=== PATIENT | female | born 1975 | race Hispanic/Latino ===

== ENCOUNTER 2021-01-09 22:37 | Observation (INO) | payer MEDICAID, OTHER, SELFPAY ==
[~2021-01-09] VITALS: Ht 154.9 cm; Wt 93.0 kg
[2021-01-09 23:04] VITALS: BP 159/93
--- NOTE | 2021-01-09 23:24 | ER.PDOC ---
General Chief Complaint: Abdomen Pain Stated Complaint: SIDE PAIN Time seen by MD: 23:24 Source: patient Exam Limitations: no limitations History of Present Illness Initial Comments Left abdominal pain for 3 weeks. No nausea, vomiting or diarrhea. No fever or chills. Severity/Quality: moderate, sharpness Radiation: flank (left) Associated Symptoms: denies symptoms Exacerbated by: nothing Relieved By: nothing Allergies: Coded Allergies: No Known Allergies (Unverified , 01/09/21) Vital Signs First Vital Signs Date Time Temp Pulse Resp B/P (MAP) Pulse Ox O2 Delivery O2 Flow Rate FiO2 01/09/21 23:04 98.0 97 16 01/09/21 23:04 159/93 (115) 97 Room Air Last Vital Signs Date Time Temp Pulse Resp B/P (MAP) Pulse Ox O2 Delivery O2 Flow Rate FiO2 01/09/21 23:04 98.0 97 16 97 01/09/21 23:04 159/93 (115) Room Air Past Medical History Medical History: hypertension Surgical History: no surgical history Family History Significant Family History: no pertinent family hx Social History Smoking: non-smoker Alcohol Use: occassionally Drug Use: none Constitutional: no symptoms reported EENTM: no symptoms reported Respiratory: no symptoms reported Cardiovascular: no symptoms reported Gastrointestinal: see HPI All Other Systems: Reviewed and Negative Physical Exam General Appearance: No Apparent Distress, WD/WN Neck: Non-Tender, Full Range of Motion, Supple, Normal Inspection Respiratory: chest non-tender, lungs clear, normal breath sounds, no respiratory distress, no accessory muscle use Cardiovascular: Normal Peripheral Pulses, Regular Rate, Rhythm, No Edema, No Gallop, No JVD, No Murmur Gastrointestinal: Normal Bowel Sounds, No Organomegaly, No Pulsatile Mass, Tenderness (Left abdomen) Back: Normal Inspection, No CVA Tenderness, No Vertebral Tenderness Extremities: Normal Range of Motion, Non-Tender, Normal Inspection, No Pedal Edema, No Calf Tenderness, Normal Capillary Refill, Pelvis Stable Neurologic/Psychiatric: 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 (01/09/21 23:14) Urinalysis (01/09/21 23:14) Hcg Urine (01/09/21 23:14) Ketorolac Tromethamine (Toradol) (01/09/21 23:33) Ct Abd/Pel With Iv Contrast (01/09/21 23:42) Vital Signs Date Time Temp Pulse Resp B/P (MAP) Pulse Ox O2 Delivery O2 Flow Rate FiO2 01/09/21 23:04 98.0 97 16 97 01/09/21 23:04 98.0 97 16 159/93 (115) 97 Room Air 01/09/21 23:04 98.0 [address] abdomen and pelvis shows left 11 mm obstructive ureteral calculus. ER DEPART Departure Time of Disposition: 01:00 Disposition: 09 ADMITTED INPATIENT Impression: Primary Impression: Ureteral stone with hydronephrosis Additional Impression: UTI (urinary tract infection) Condition: Stable Referrals: PCP,UNKNOWN (PCP) PRIMARY CARE PROVIDER Comments Admitted to Dr. Hannah. Spoke with Dr. Simental who will be consulting. Duration or Time Spent with Pa: 60 min Problem Qualifiers Additional Impression: UTI (urinary tract infection) Urinary tract infection type: site unspecified Hematuria presence: with hematuria Qualified Codes: N39.0 - Urinary tract infection, site not specified; R31.9 - Hematuria, unspecified TELLO MILTON MD Jan 09, 2021 23:24
[2021-01-09] MEDS ORDERED: TORADOL IV STA (23:33)
[2021-01-10] VITALS (8 sets, daily range): BP systolic 116–159; BP diastolic 64–98
[2021-01-10] MEDS ORDERED: ZOFRAN IV PRN (01:30)
[2021-01-10] MEDS ORDERED: DEMEROL IV PRN (01:30)
[2021-01-10] MEDS ORDERED: ROCEPHIN ONE ×2 (01:33→12:06)
[2021-01-10] MEDS ORDERED: HNS 1000ML/KCL 20MEQ 1,000 ML ONE (02:10)
[2021-01-10] MEDS ORDERED: DEMEROL ONE (02:31)
[2021-01-10 06:34] LABS: UA COLOR YELLOW
[2021-01-10 06:35] LABS: BILIRUBIN,URINE NEGATIVE (NEGATIVE)
[2021-01-10 06:36] LABS: UROBILINOGEN,URINE 0.2 E.U./dL (0.2)
[2021-01-10 06:38] LABS: BASOPHIL % 0.5 % (0.0-0.2); EOSINOPHIL % 1.4 % (0.0-5.0); LYMPHOCYTES # 2.72 10^3/uL1 (1.0-4.8); LYMPHOCYTES % 42.8 % (24.0-44.0); MEAN CORP HGB 31.7 pg (26-34); MONOCYTES % 5.8 % (5.0-12.0); NEUTROPHIL # 3.1 10^3/uL (1.8-7.7); NEUTROPHILS % 49.2 % (41.0-85.0); RED CELL DISTRIBUTION WIDTH 13.7 % (11.5-14.5)
[2021-01-10 06:39] LABS: MONOCYTES # 0.4 10^3/uL (0.3-0.8)
[2021-01-10 06:41] LABS: CALCIUM 8.7 mg/dL (8.4-10.5)
--- NOTE | 2021-01-10 08:10 | PCM.HP ---
Review of Systems Allergies: Coded Allergies: No Known Allergies (Unverified , 01/09/21) VTE VTE Risk Score VTE Risk: Score 0-1 = Low Risk (Aggressive mobilization; early ambulation; no VTE prophylaxis required) Score 2: Moderate Risk (Intermittent/Pneumatic Compression Device OR Lovenox/Heparin/Coumadin) Score 3-4: High Risk (Intermittent/Pneumatic Compression Device AND Lovenox/Heparin/Coumadin) Score > or =5: Highest Risk (Intermittent/Pneumatic Compression Device AND Lovenox/Heparin/Coumadin) Exam Vital Signs Vital Signs Date Time Temp Pulse Resp B/P (MAP) Pulse Ox O2 Delivery O2 Flow Rate FiO2 01/10/21 07:52 97.7 62 18 144/76 (98) 98 01/09/21 23:04 Room Air ERICKA ZHANG MD Jan 10, 2021 08:10
[2021-01-10] MEDS ORDERED: ROCEPHIN 1,000 MG in NS 100ML 100 ML IV SCH (08:30)
[2021-01-10] MEDS ORDERED: LACTATED RINGERS 1,000 ML ONE ×2 (08:53→12:55)
[2021-01-10] MEDS ORDERED: SUBLIMAZE ONE (11:38)
[2021-01-10] MEDS ORDERED: DIPRIVAN IV ONE (11:38)
[2021-01-10] MEDS ORDERED: VERSED ONE ×2 (11:39→11:41)
[2021-01-10] MEDS ORDERED: TORADOL ONE (11:41)
[2021-01-10] MEDS ORDERED: DECADRON ONE (11:42)
[2021-01-10] MEDS ORDERED: ZOFRAN ONE (11:42)
[2021-01-10] MEDS ORDERED: NS 3000ML IRR IR ONE (12:06)
[2021-01-10] MEDS ORDERED: SODIUM CHLORIDE IRR BOTTLE IR ONE (12:06)
[2021-01-10] MEDS ORDERED: NS 100ML 100 ML IV ONE (12:09)
--- NOTE | 2021-01-10 12:24 | NUR ---
[facility] UNABLE TO TAKE TRANSFER. NO BEDS AVAILABLE.
--- NOTE | 2021-01-10 12:25 | NUR ---
[facility] UNABLE TO TAKE TRANSFER. ON DIVERSION AND NOT ACCEPTING TRANSFERS
--- NOTE | 2021-01-10 12:26 | NUR ---
[facility] UNABLE TO TAKE TRANSFER. ON DIVERSION
--- NOTE | 2021-01-10 12:27 | NUR ---
[facility] UNABLE TO TAKE TRANSFER. ON DIVERSION.
--- NOTE | 2021-01-10 12:28 | NUR ---
[facility] UNABLE TO TAKE TRANSFER. ON DIVERSION.
--- NOTE | 2021-01-10 12:29 | PCM.HP ---
History of Present Illness Reason for Visit: Abdominal pain or nausea History of Present Illness 45-year-old female with history of hypertension noncompliant treatment presented to the emergency room with abdominal pain and nausea for the last 2 days. Work- up in the emergency room including CT abdomen pelvis patient was found to have 11 mm ureter stone. Patient being admitted hospital for further management. Urologist consulted. Past Medical History Cardiac: HTN Review of Systems Constitutional: Chills Eyes: No: Pain, Vision change ENT: No: Ear pain, Ear discharge Respiratory: No: Dry, Shortness of breath Cardiovascular: No: Chest Pain, Palpitations Gastrointestinal: Nausea, Vomiting, Abdominal Pain Genitourinary: Frequency; No Incontinence; Other Musculoskeletal: No: neck pain, shoulder pain Skin: No: Lesions, Jaundice Neurological: No: Weakness, Numbness Allergies: Coded Allergies: No Known Allergies (Unverified , 01/09/21) Exam Vital Signs Vital Signs Date Time Temp Pulse Resp B/P (MAP) Pulse Ox O2 Delivery O2 Flow Rate FiO2 01/10/21 11:54 98.1 64 18 148/98 (115) 98 01/09/21 23:04 Room Air General Appearance: Alert, Oriented X3 HEENT: Atraumatic, PERRLA Respiratory: Clear to auscultation, Normal air movement Cardiovascular: Regular rate, Normal S1, Normal S2 Abdominal: Normal bowel sounds, Other (Left abdominal tenderness,) Extremities: No clubbing, No cyanosis Skin: No rash, No breakdown Neuro: Normal gait, Normal speech Psych/Mental Status: Mental status NL, Mood NL Assessment/Plan Assessment/Plan Assessment/Plan 45-year-old female with history of hypertension noncompliant treatment presented to the emergency room with abdominal pain and nausea for the last 2 days. Work- up in the emergency room including CT abdomen pelvis patient was found to have 11 mm ureter stone. Patient being admitted hospital for further management. Urologist consulted. Problems: (1) Ureteral stone with hydronephrosis Status: Acute ICD Code: N13.2 - Hydronephrosis with renal and ureteral calculous obstruction SNOMED: 995576318 (2) UTI (urinary tract infection) Status: Acute ICD Code: N39.0 - Urinary tract infection, site not specified SNOMED: 52915514 (3) Hypertension ICD Code: I10 - Essential (primary) hypertension SNOMED: 59885349 Plan Plan Admit Keep n.p.o. IV fluids Pain management IV antibiotic Urologist consulted for further management We will monitor control blood pressure Prophylaxis early ambulation Expect length of stay 1 midnight if patient stable and cleared by Urologist Problem Qualifiers (1) UTI (urinary tract infection): Urinary tract infection type: site unspecified Hematuria presence: with hematuria Qualified Codes: N39.0 - Urinary tract infection, site not s pecified; R31.9 - Hematuria, unspecified ERICKA ZHANG MD Jan 10, 2021 12:29
[2021-01-10] MEDS ORDERED: TRANDATE IV PRN (12:30)
--- NOTE | 2021-01-10 12:37 | NUR ---
[facility] WILL PLACE PT ON WAIT LIST. PHYSICIAN CONTACT PROVIDED
[2021-01-10] MEDS: ROCEPHIN 1,000 MG in NS 100ML 100 ML IV SCH ×2 (12:50→14:56)
[2021-01-10] MEDS ORDERED: LACTATED RINGERS 1,000 ML IV SCH (13:00)
--- NOTE | 2021-01-10 13:11 | OPH ---
DATE OF SURGERY: 01/10/2021 DICTATOR NAME: Taye Simental MD DATE OF PROCEDURE: 01/10/2021 DESCRIPTION OF PROCEDURE: The patient was brought to the cystoscopy room and put in supine position on the cystoscopy table. After the patient was given a satisfactory and adequate LMA general anesthesia, the patient was placed in the lithotomy position. The genitalia was then prepped and draped aseptically in the usual manner. First, a 23-Israeli cystoscope was inserted per urethra up to the bladder. With the use of the right angle lens, the bladder was visualized. There is no tumor, no calculi, no ulcerations seen. Both ureteral orifices were normal. Initial left retrograde was done by inserting a 7-Israeli ureteral catheter in the left ureteral orifice and injected with Omnipaque dye and it showed a large calculus in the left lower ureter at the level of S1 with hydroureteronephrosis. A Glidewire was then attempted to be inserted into the left ureteral orifice, but it was completely obstructed and the guidewire would not go through, so the cystoscope was removed and then a 7-Israeli semirigid ureteroscope was inserted into the bladder into the left ureteral orifice and again a guidewire was inserted and attempted to pass the stone, but it was still completely blocked. I was unable to put a stent because of the complete blockage of the large calculus in the left lower ureter. At this time, I stopped the procedure. The ureteroscope was removed and a cystoscope was reinserted into the bladder and the bladder was emptied with fluid. After this, the cystoscope was removed. Procedure was terminated. The patient was transferred to the recovery room in stable condition. PLAN: Now is to refer the patient for a left percutaneous nephrostomy. Taye Simental MD DR: DEONDRE/CARIDAD/STEFANY TID: [id number] RECEIPT: [id number] DANYA
[2021-01-10] MEDS: HNS 1000ML/KCL 20MEQ 1,000 ML IV SCH ×3 (14:55→21:30)
[2021-01-10] MEDS: NS 1000ML 1,000 ML IV SCH ×2 (14:56→16:30)
--- NOTE | 2021-01-10 14:58 | NUR ---
[facility] PT PLACED ON WAIT LIST AT [facility] IN [place], [place]
--- NOTE | 2021-01-10 15:23 | NUR ---
[facility] ON DIVERSION. PT PLACED ON WAIT LIST.
--- NOTE | 2021-01-10 15:27 | NUR ---
[facility] IN [facility] IN [place], [place] IN DIVERSION.
[2021-01-10] MEDS: MORPHINE SULFATE IV PRN ×3 (15:52→23:55)
--- NOTE | 2021-01-10 16:08 | DIREP ---
PROCEDURE:XRAY UROGRAPHY RETROGRADE COMPARISON:[facility], CT, CT ABD/PELVIS W/ CONTRAST, 01/10/2021, 00:22 AM. INDICATIONS:9 FILMS 54.41MGY 107.6 SECS FLURO 10 CC OMNI 240 TECHNIQUE:Multiple fluoroscopic images were obtained during retrograde urogram. Nine fluoroscopic images are provided. Total fluoroscopic time 107.6 seconds FINDINGS: Large filling defects seen within mid ureter secondary to calculus seen on recent CT. Partially opacified left ovary caliceal system appears distended consistent with hydronephrosis. Subsequent images demonstrate passes over wire into the distal ureter towards calculus, no images demonstrating wire passing calculus. Last 2 fluoroscopic images demonstrate residual contrast within the left upper urinary collecting system. CONCLUSION: 1. Mid left ureteral calculus, provided fluoroscopic images do not demonstrate retrieval of stone. 2. Dilated left urinary collecting system. Dictated by: Royer Rushing M.D. on 01/10/2021 at 04:03 PM
--- NOTE | 2021-01-10 20:47 | CNH ---
DATE OF CONSULTATION: 01/10/2021 DICTATOR NAME: Taye Simental MD HISTORY OF PRESENT ILLNESS: This is a 45-year-old old female who was admitted from the emergency room last night by the hospitalist because of left flank pain. A noncontrast CT scan revealed a large stone in the left lower ureter at the level of S1 around 11 mm with hydroureteronephrosis. The patient was seen this morning. All the lab reports were within normal range and he has a history of kidney stone before. I explained to the patient that because of that obstruction, we will try to attempt to do a cystoscopy, left retrograde with possible insertion of stent this morning. Taye Simental MD DR: BATSHEVA TID: [id number] RECEIPT: [id number]
[2021-01-10] MEDS ORDERED: MORPHINE SULFATE ONE (21:55)
[2021-01-11] MEDS: NS 1000ML 1,000 ML IV SCH ×2 (00:30→10:33)
[2021-01-11 01:35] VITALS: BP 165/100
[2021-01-11 06:06] VITALS: BP 162/112
[2021-01-11 07:55] VITALS: BP 149/96
[2021-01-11] MEDS ORDERED: NORVASC PO SCH (09:30)
[2021-01-11 09:54] LABS: CALCIUM 8.7 mg/dL (8.4-10.5); CARBON DIOXIDE 23.5 mmol/L (20.0-32)
[2021-01-11 11:35] VITALS: BP 151/83
--- NOTE | 2021-01-11 13:05 | PRM.PN ---
Subjective Subjective Date: Jan 11, 2021 Time: 09:00 Subjective Patient had cystoscopy yesterday, urologist was unable to place a stent because of the size and location of the stone. Request to transfer the patient for IR placement of nephrostomy tube. Called multiple hospitals, no beds available at this time, patient is on multiple waiting lists. Review of Systems Constitutional: Chills Eyes: No: Pain, Vision change ENT: No: Ear pain, Ear discharge Respiratory: No: Dry, Shortness of breath Cardiovascular: No: Chest Pain, Palpitations Gastrointestinal: Nausea, Vomiting, Abdominal Pain Genitourinary: Frequency; No Incontinence; Other Musculoskeletal: No: neck pain, shoulder pain Skin: No: Lesions, Jaundice Neurological: No: Weakness, Numbness Allergies: Coded Allergies: No Known Allergies (Unverified , 01/09/21) Objective Vitals and I/O Vital Sign - Last 24 Hours 01/10/21 01/10/21 01/10/21 01/10/21 15:09 16:25 20:29 21:40 Temp 97.5 97.7 Pulse 68 69 Resp 18 17 B/P (MAP) 159/97 (117) 142/93 (109) Pulse Ox 98 93 O2 Delivery Room Air Room Air 01/11/21 01/11/21 01/11/21 01/11/21 01:35 06:06 07:55 09:41 Temp 97.4 97.6 97.5 Pulse 66 93 83 83 Resp 17 18 20 B/P (MAP) 165/100 (121) 162/112 (129) 149/96 (113) 149/96 Pulse Ox 97 99 95 01/11/21 01/11/21 11:08 11:35 Temp 97.7 Pulse 62 Resp 19 B/P (MAP) 151/83 (105) Pulse Ox 95 O2 Delivery Room Air Intake and Output 01/11/21 07:00 Intake Total 100 ml Balance 100 ml General: Alert, Oriented X3 HEENT: Atraumatic, PERRLA Lungs: Clear to auscultation, Normal air movement Heart: Regular rate, Normal S1, Normal S2 Abdomen: Normal bowel sounds, Other (Left abdominal tenderness,) Extremities: No clubbing, No cyanosis Neuro: Normal gait, Normal speech Psych/Mental Status: Mental status NL, Mood NL All Results(Lab/Rad) Laboratory Tests Test 01/11/21 09:30 Sodium Level 139 mmol/L Potassium Level 3.8 mmol/L Chloride Level 105.0 mmol/L Carbon Dioxide Level 23.5 mmol/L Glucose Level 154 mg/dL Blood Urea Nitrogen 6 mg/dL Creatinine 0.74 mg/dL Calcium Level 8.7 mg/dL Anion Gap 14.3 Estimated GFR () 103.2 Est GFR (CKD-EPI)(Non-Afr German) 85.3 BUN/Creatinine Ratio 8.0 Current Medications Medications (Trade) Dose Ordered Sig/Joanna Route PRN Reason Start Time Stop Time Status Last Admin Dose Admin Ketorolac Tromethamine (Toradol) 30 mg STAT STAT IV 01/09/21 23:33 01/10/21 08:37 DC Ceftriaxone Sodium (Rocephin) 1,000 mg STK-MED ONCE .ROUTE 01/10/21 01:33 01/10/21 05:27 DC Morphine Sulfate (Morphine Sulfate) 2 mg Q4H PRN IV PAIN 7 - 10 01/10/21 08:30 02/09/21 08:29 01/10/21 23:55 Ceftriaxone Sodium 1000 mg/ Sodium Chloride 100 ml @ 100 mls/hr Q24HRS IV 01/10/21 08:30 01/10/21 09:25 DC Sodium Chloride 1,000 ml @ 125 mls/hr Q8H IV 01/10/21 08:30 02/09/21 08:29 01/11/21 10:33 Potassium Chloride/Sodium Chloride 1,000 ml @ ud STK-MED ONCE .ROUTE 01/10/21 02:10 01/10/21 08:31 DC Meperidine HCl (Demerol) 50 mg STK-MED ONCE .ROUTE 01/10/21 02:31 01/10/21 08:31 DC Ceftriaxone Sodium 1000 mg/ Sodium Chloride 100 ml @ 100 mls/hr Q24HRS IV 01/10/21 13:00 02/09/21 12:59 01/10/21 12:50 Propofol (Diprivan) 200 mg STK-MED ONCE IV 01/10/21 11:38 01/10/21 11:38 DC Fentanyl Citrate (Sublimaze) 50 mcg STK-MED ONCE .ROUTE 01/10/21 11:38 01/10/21 11:39 DC Ketorolac Tromethamine (Toradol) 30 mg STK-MED ONCE .ROUTE 01/10/21 11:41 01/10/21 11:42 DC Ondansetron HCl (Zofran) 4 mg STK-MED ONCE .ROUTE 01/10/21 11:42 01/10/21 11:42 DC Sodium Chloride (Sodium Chloride Irr Bottle) 1,000 ml STK-MED ONCE IR 01/10/21 12:06 01/10/21 12:06 DC Sodium Chloride (NS 3000ml Irr) 3,000 ml STK-MED ONCE IR 01/10/21 12:06 01/10/21 12:06 DC Ceftriaxone Sodium (Rocephin) 1,000 mg STK-MED ONCE .ROUTE 01/10/21 12:06 01/10/21 12:07 DC Sodium Chloride 100 ml @ ud STK-MED ONCE IV 01/10/21 12:09 01/10/21 12:09 DC Labetalol HCl (Trandate) 10 mg Q4H PRN IV HYPERTENSION 01/10/21 12:30 02/09/21 12:29 Potassium Chloride/Sodium Chloride 1,000 ml @ 100 mls/hr Q10H IV 01/10/21 01:30 01/11/21 07:39 DC 01/10/21 21:30 Meperidine HCl (Demerol) 50 mg Q4H PRN IV PAIN >4 01/10/21 01:30 02/09/21 01:29 Ondansetron HCl (Zofran) 4 mg Q4H PRN IV NAUSEA / VOMITING 01/10/21 01:30 02/09/21 01:29 01/10/21 15:52 Morphine Sulfate (Morphine Sulfate) 2 mg STK-MED ONCE .ROUTE 01/10/21 21:55 01/10/21 21:55 DC Amlodipine Besylate (Norvasc) 5 mg DAILY PO 01/11/21 09:30 02/10/21 09:29 01/11/21 09:41 Assessment/Plan Assessment/Plan Problems: (1) Ureteral stone with hydronephrosis Status: Acute ICD Code: N13.2 - Hydronephrosis with renal and ureteral calculous obstruction SNOMED: 930083835 (2) UTI (urinary tract infection) Status: Acute ICD Code: N39.0 - Urinary tract infection, site not specified SNOMED: 32572668 (3) Hypertension ICD Code: I10 - Essential (primary) hypertension SNOMED: 13353109 Plan Patient had cystoscopy yesterday, urologist was unable to place a stent because of the size and location of the stone. Request to transfer the patient for IR placement of nephrostomy tube. Called multiple hospitals, no beds available at this time, patient is on multiple waiting lists. Problem Qualifiers (1) UTI (urinary tract infection): Urinary tract infection type: site unspecified Hematuria presence: with hematuria Qualified Codes: N39.0 - Urinary tract infection, site not specified; R31.9 - Hematuria, unspecified ERICKA ZHANG MD Jan 11, 2021 13:05
[2021-01-11] MEDS ORDERED: AMLO5TAB4 PO (13:48)
[2021-01-11] MEDS ORDERED: CIPR250T28 PO (13:48)
--- NOTE | 2021-01-11 13:54 | PRM.DC ---
Discharge Summary Date of Discharge: Jan 11, 2021 Time of Request to Discharge: 09:00 Reason for Visit: Abdominal pain or nausea Hospital Course 45-year-old female with past medical history of hypertension but not on any treatment presented to emergency room with left lower quadrant abdominal pain associated with nausea. Work-up including CT abdomen pelvis patient was found to have a large 11 mm ureter stone.?? UTI. Urologist consulted.Urologist performed cystoscopy and attempted for retrieval of the stone was unsuccessful. Urologist advised nephrostomy tube . Attempts to transfer the patient to multiple facilities multiple hospitals was unsuccessful all hospitals are full and patient was not accepted at the time of this dictation. Urologist cleared the patient for discharge . Patient kidney function remained stable today. Creatinine remained stable. Today symptoms improved pain is tolerable no vomiting tolerating diet. Condition is stable. Patient will be discharged home. Appointment was given to the patient at [facility] for next Friday in the intervention radiology department for outpatient nephrostomy placement. Patient was instructed if her symptoms recurs, worsen or she develops fever chills nausea vomiting or reduced urine output to go directly to the emergency room. Patient understands instructions. Also patient was given prescription for antibiotic and amlodipine since her hypertension.Diet advance as tolerated. Scheduled Amlodipine Besylate (Norvasc), 5 MG PO DAILY Ciprofloxacin Hcl (Cipro), 250 MG PO BID Sepsis Evaluation @ Discharge 01/11/21 09:55 Plan Problems: (1) Ureteral stone with hydronephrosis Status: Acute ICD Code: N13.2 - Hydronephrosis with renal and ureteral calculous obstruction SNOMED: 911949566 (2) Hypertension ICD Code: I10 - Essential (primary) hypertension SNOMED: 80699121 (3) UTI (urinary tract infection) Status: Acute ICD Code: N39.0 - Urinary tract infection, site not specified SNOMED: 80516345 Discharge Date: Jan 11, 2021 Discharge Disposition: Stable Plan 45-year-old female with past medical history of hypertension but not on any treatment presented to emergency room with left lower quadrant abdominal pain associated with nausea. Work-up including CT abdomen pelvis patient was found to have a large 11 mm ureter stone.?? UTI. Urologist consulted.Urologist performed cystoscopy and attempted for retrieval of the stone was unsuccessful. Urologist advised nephrostomy tube . Attempts to transfer the patient to multiple facilities multiple [facility] was unsuccessful all hospitals are full and patient was not accepted at the time of this dictation. Urologist cleared the patient for discharge . Patient kidney function remained stable today. Creatinine remained stable. Today symptoms improved pain is tolerable no vomiting tolerating diet. Condition is stable. Patient will be discharged home. Appointment was given to the patient at [facility] for next Friday in the intervention radiology department for outpatient nephrostomy placement. Patient was instructed if her symptoms recurs, worsen or she develops fever chills nausea vomiting or reduced urine output to go directly to the emergency room. Patient understands instructions. Also patient was given prescription for antibiotic and amlodipine since her hypertension.Diet advance as tolerated. Problem Qualifiers (1) UTI (urinary tract infection): Urinary tract infection type: site unspecified Hematuria presence: with hematuria Qualified Codes: N39.0 - Urinary tract infection, site not specified; R31.9 - Hematuria, unspecified ERICKA ZHANG MD Jan 11, 2021 13:54
--- NOTE | 2021-01-11 15:09 | NUR ---
DISCHARGE DISCHARGE INSTRUCTIONS GIVEN TO PT BOTH VERBALLY AND WRITTEN AT THIS TIME. PT EDUCATED OVER NEW RX'S, INDICATIONS OF USE, AND POSSIBLE S/E, PT EDUCATED OVER OUTPATIENT PROCEDURE APPOINTMENT AT [facility] ON January AT 1115, AND TO BE NPO AFTER MIDNIGHT THE NIGHT BEFORE, PT VERBALIZED UNDERSTANDING. IV REMOVED VIA ASEPTIC TECHNIQUE, CATH TIP STILL INTACT, PT TOLERATED WELL. PT HAS NO QUESTIONS OR CONCERNS AT THIS TIME. NO ACUTE DISTRESS NOTED. PT AMBULATED OFF OF UNIT ACCOMPANIED BY FAMILY MEMBER AT THIS TIME TO PRIVATE AUTO. RELINQUISHED CARE OF PT.
[2021-01-11 15:29] VITALS: BP 151/83
--- NOTE | 2021-01-12 13:57 | DIREP ---
PROCEDURE: CT ABD/PELVIS W/ CONTRAST TECHNIQUE: Following the intravenous administration of contrast material, venous phase cuts were obtained through the abdomen and pelvis. The images were viewed at lung and soft tissue settings. Sagittal and coronal reconstructions are provided. COMPARISON: None. INDICATIONS: left abd pain FINDINGS: LOWER CHEST: The lung bases are clear. LIVER: Diffuse fatty changes. BILIARY: Normal. PANCREAS: Normal. SPLEEN: Normal. URINARY TRACT: 11 mm stone in the mid left ureter at the level of S1 causing left-sided hydroureter and hydronephrosis series 3, image 63 and series [id number], image 43. The left kidney is otherwise normal. The right kidney is normal. ADRENALS: Normal. AORTA/VASCULAR: Normal. RETROPERITONEUM: Normal. BOWEL/MESENTERY: Normal. Normal appendix. ABDOMINAL WALL: Normal. PELVIS: IUD in the endometrial cavity. BONES: Normal. OTHER: Normal. CONCLUSION: 1. 11 mm stone mid left ureter causing left-sided hydro nephrosis and hydroureter. 2. IUD in the endometrial cavity. 3. Hepatic steatosis. Dictated by: Zane Plunkett M.D. on 01/10/2021 at 01:13 AM TH SYSTEMRoland
== END 2021-01-11 15:09 | disposition home or self-care (01) ==
LOC: ER 22:37 → MS 01-10 01:30
PROVIDERS: ADMIT Internal Medicine; ATTEND Internal Medicine
DX: N13.6 Pyonephrosis (principal); N39.0 Urinary tract infection, site not specified; I10 Essential (primary) hypertension; F41.9 Anxiety disorder, unspecified; G47.30 Sleep apnea, unspecified; Z87.442 Personal history of urinary calculi; Z91.19 Patient's noncompliance with other medical treatment and regimen; Z79.899 Other long term (current) drug therapy
CPT/HCPCS: 36415 ×2; 52005; 74177; 74420; 80048; 80053; 81001; 81025; 82150; 82948; 83690; 85025; 85610; 85730; 86677; 87086; 96361 ×2; 96374; 96375; 96376; 99285; A4217 ×2; C1769; G0378 ×29; J0696 ×2; J1100; J1885 ×2; J2175 ×2; J2250 ×2; J2405 ×4; J3010; J3490; J7030 ×4; J7120 ×2; Q9965; Q9966; 76000; C1758